=== PATIENT | male | born 1970 | race Hispanic/Latino ===

== ENCOUNTER 2025-04-27 07:56 | Emergency (ER) | payer OTHER ==
[~2025-04-27] VITALS: Ht 167.6 cm; Wt 80.3 kg
--- NOTE | 2025-04-27 08:09 | ERN ---
General Chief Complaint: Other Problems Stated Complaint: HX OF DIABETES Time Seen by MD: 07:59 History of Present Illness Initial Comments 54-year-old male brought in by [facility] for glucose check. Patient has no complaints. He states that he has a diabetic. He reports that he takes metformin. He was picked up by [facility] and they brought him here for medical clearance. Allergies: Coded Allergies: No Known Drug Allergies (Unverified Allergy, Unknown, 04/27/25) Past Medical History Past Medical History: Diabetes-Type II Past Surgical History: None ROS Dictation CONSTITUTIONAL: No chills, no fever, no weakness, no diaphoresis, no malaise. HEAD/FACE: No signs of trauma. EENT: No eye pain, no blurred vision, no tearing, no double vision, no ear pain, no ear discharge, no nose pain, no nasal congestion, no throat pain, no throat swelling, no mouth pain. RESPIRATORY: No cough, no orthopnea, no SOB, no stridor, no wheezing. CARDIOVASCULAR: No chest pain, no edema, no palpitations, no syncope. GASTROINTESTINAL/ABDOMINAL: No abdominal pain, no constipation, no diarrhea, no nausea, no vomiting. GENITOURINARY: No abnormal discharge, no dysuria, no frequent urination, no hematuria. No complaints of pain in the genitals. MUSCULOSKELETAL: No back pain, no gout, no joint pain, no joint swelling, no muscle pain, no muscle stiffness, no neck pain. INTEGUMENTARY: No change in color, no change in hair/nails, no dryness, no lesion, no lumps, no rash. NEUROLOGICAL/PSYCH: No anxiety, not depressed, no emotional problem, no h eadache, no numbness, no pre-existing deficit, no history of seizures, no tremors, no weakness. HEMATOLOGIC/LYMPHATIC: Not anemic, no history of blood clots, no apparent bleeding, no bruising, glands not swollen. All Systems Negative, Except as Noted. Physical Exam Physical Exam Dictation VITAL SIGNS: Reviewed. GENERAL APPEARANCE: Alert, oriented x3, no acute distress, obese. HEAD AND FACE: Non-traumatic. EYES: PERRL, pink conjunctivas, eyelid no trauma, anterior chamber clear. EARS: Pinnas intact and no signs of trauma or erythema. Ear canals clear and no discharge. TMs no erythema. NOSE: No discharge, no bleeding. OROPHARYNX: Mouth normal, teeth no caries, tongue pink. Pharynx clear, no erythema. Tonsils no exudates, no abscesses noted. Mucous membrane moist. NECK: Supple, non-tender, no thyromegaly, no masses, no JVD, no bruits. BREAST: Deferred. CHEST: No tenderness, no crepitus, no paradoxical movement, no retractions. LUNGS: Clear, well-ventilated, symmetric, no rales, no wheezing, no rhonchi, no stridor, good breath sounds bilaterally. HEART: Regular rate, regular rhythm, no murmur, no gallops. VASCULAR: No peripheral edema. ABDOMEN: Soft, positive bowel sounds, nondistended, no guarding, nontender, no rebound, no masses no hepatomegaly, no splenomegaly, no Acevedo's sign, no hernias. RECTAL: Deferred. GENITAL: Deferred. NEUROLOGICAL: Normal speech, gross motor function intact, gross sensory function intact. MUSCULOSKELETAL: Neck nontender, full range of motion, back nontender, full range of motion. EXTREMITIES: Nontender, full range of motion. SKIN: Color pink, dry, no turgor, no rash, no lacerations, no abrasions, no contusions. LYMPHATICS: Deferred. MDM CC: Patient has a no complaints, has a history of diabetes with sent for a glucose check Limitations by social determinants of health: Here report or patrol Comorbidities include diabetes Differential diagnosis: Hyperglycemia, other Vital signs are stable Fingerstick shows 197 Plan: Discharge with metformin. Patient reports he already takes this medicine back home, but he does not have any medication here. ED Course Orders Procedure Category Date Status Time Bedside Glucose CPOE 04/27/25 Transmitted Fingerstick 08:06 Vital Signs Date Time Temp Pulse Resp B/P (MAP) Pulse Ox O2 Delivery O2 Flow Rate FiO2 04/27/25 07:58 98.8 107 16 116/77 98 Room Air DX & DISP Disposition: Discharge Departure Impression: Primary Impression: Hyperglycemia Additional Impression: Diabetes Condition: Stable Scripts Metformin HCl (Metformin HCl) 500 Mg Tablet 1 TAB PO BID for 30 Days, #60 TAB 0 Refills Prov: CHANNING RAMAN DO 04/27/25 Additional Instructions: Your glucose is 197. I have prescribed metformin. Take twice per day as prescribed. Please follow up with a primary provider. Return to the ED as needed. CHANNING RAMAN DO Apr 27, 2025 08:09
[2025-04-27 08:20] VITALS: BP 125/65; PULSE 102; RESP 19; TEMP 98.3; O2SAT 100
[2025-04-27] MEDS ORDERED: METF-444 PO (08:20)
--- NOTE | 2025-04-27 08:25 | NUR ---
blood sugar of 197
--- NOTE | 2025-04-27 08:51 | NUR ---
patient was dc'd by dr. alva, i explained to patient and flight agent for patient to follow up with pcp and take new prewscriptions as directed patient ambulated out of ed, accompanied by flight agent, no complications
== END 2025-04-27 08:47 | disposition home or self-care (01) ==
LOC: EDH 07:56 → EEVIPCON 07:56 → EDH 08:47
DX: E11.65 Type 2 diabetes mellitus with hyperglycemia (principal); Z79.84 Long term (current) use of oral hypoglycemic drugs
CPT/HCPCS: 82948; 99283